=== PATIENT | female | born 1985 | race Native Hawaiian/Other Pacific Islander ===

== ENCOUNTER → 2019-05-10 11:27 | Outpatient (CLI) | payer SELFPAY ==
[2019-05-10 16:35] LABS: HIV 1 & 2 Ab/Ag 4th Gen Combo NEGATIVE (NEGATIVE); Hep C Virus Ab w/Reflex Quant NEGATIVE s/c (NEGATIVE)
== END ==
PROVIDERS: PCP Specialist; Visit Provider Specialist
DX: Z34.81 Encounter for supervision of other normal pregnancy, first trimester (principal)
CPT/HCPCS: 36415; 86787; 86803; 87389

== ENCOUNTER → 2019-07-23 09:44 | Outpatient (CLI) | payer OTHER, SELFPAY ==
[2019-07-23 12:08] LABS: Glucose Fasting 87 mg/dL (70-100)
[2019-07-23 13:01] LABS: Glucose 1 Hour 126 mg/dL (70-170)
[2019-07-23 14:05] LABS: Glucose 2 Hour 115 mg/dL (70-140)
[2019-07-23 15:10] LABS: Glucose Tol Interpretation INTERPRETATION
[2019-07-23 15:17] LABS: Glucose 3 Hour 90 mg/dL (70-115)
== END ==
PROVIDERS: Visit Provider Specialist
DX: O99.810 Abnormal glucose complicating pregnancy (principal); Z34.92 Encounter for supervision of normal pregnancy, unspecified, second trimester
CPT/HCPCS: 36415; 82951; 82952

== ENCOUNTER 2019-09-07 13:59 | Observation (INO) | payer OTHER, MEDICAID, SELFPAY ==
--- NOTE | 2019-09-07 14:37 | P.TNLD_ITS ---
Visit Information Visit Information Date of evaluation: 09/07/19 Primary OB Provider: Elisabeth Chairez On-call OB Provider: Joan Tabares Reason for Evaluation: Yes other Comments/Additional reasons for admission: Pt with diarrhea, nausea, and vomiting starting early this morning. Last PO intake around 1am. Vomited once. Several occurrences of diarrhea. No blood in her emesis or stool. [facility] Medical History (Updated 09/07/19 @ 16:24 by Joan Tabares MD) ADHD (Chronic ~2011) Chicken pox (Resolved) GERD (gastroesophageal reflux disease) (Chronic ~2017) H/O pre-eclampsia in prior , currently (Acute) Herpes (Inactive ~2017) Hypertension (Chronic ~2017) Infertility (Inactive ~2015) Surgical History (Updated 05/06/19 @ 21:08 by Robyn uW) Anesthesia (Resolved) H/O: section (Resolved ~10/2017) Family History (Updated 05/06/19 @ 21:13 by Robyn Wu) Father Glaucoma Sister Pernicious anemia B12 deficiency Grandfather Cancer Grandmother No problems noted. Grandfather Hypertension History of heart disease Grandmother Cancer Objective Imaging ob us: Radiologist's impression: Cervical length 5.0cm. Evaluation Evaluation Baseline heart rate: 140 Variability: Moderate (11-25) monitor accelerations: Present monitor decelerations: Absent Contraction Frequency (minutes): 6 Uterine Contraction Intensity: Mild Category of Tracing: I Diagnosis, Plan/Disposition Final Diagnosis (1) Diarrhea: Current Visit: No Status: Acute (2) Vomiting: Current Visit: No Status: Acute (3) contractions: Current Visit: No Status: Acute Plan/Disposition Plan: No diarrhea or vomiting/nausea while in L&D. Tolerating fluids well. Contractions very mild. Normal cervical length. U/A clean. Recommend increasing fluids at home. F/U with OB within 1 week. OB Disposition: home
--- NOTE | 2019-09-07 15:11 | DI.US.S_ITS ---
PROCEDURE: US OB LIMITED INDICATIONS: CERVICAL LENGTH OUTSIDE/PRIOR DATING DATA: Last menstrual period (LMP): Not available. LMP-based estimated date of delivery (DUNCAN): 10/21/19. First dating scan (date and location): 04/08/19. Estimated date of delivery (DUNCAN) from first dating scan: 10/21/19. TECHNIQUE: Real-time scanning was performed of the fetus, with image documentation. Endovaginal scanning: Not needed COMPARISON: None. FINDINGS: A single living intrauterine gestation is present. Presentation: Vertex. heart rate: 158 beats per minute. Maternal cervical canal: 5.0 cm long. Normal lower limit is 2.5 cm. Estimated gestational age from initial scan: Not available for review. IMPRESSION: 5.0 cm cervical length. heart rate 158 beats per minute. Outside prior OB ultrasound dated apparently is available for review but not available at this time for reference to this study with comparison images from the prior examination(s). Dictated by: Alfredito Ramires M.D. on 09/07/2019 at 17:04 Approved by: Alfredito Ramires M.D. on 09/07/2019 at 17:07
[2019-09-07 15:16] LABS: RBC Urine None Seen (0-5/HPF)
[2019-09-07 15:25] LABS: Appearance Urine UA CLEAR; Bilirubin Urine UA NEGATIVE (NEGATIVE); Color Urine UA YELLOW; Glucose Urine UA NEGATIVE (Negative); Ketones Urine UA NEGATIVE (NEGATIVE); Leukocyte Esterase Urine UA NEGATIVE (NEGATIVE); Nitrite Urine UA NEGATIVE (Negative); Occult Blood Urine UA NEGATIVE (Negative); Protein Urine UA NEGATIVE (Negative); Urobilinogen Urine UA 0.2 E.U./dL (0.2)
[2019-09-07 15:47] LABS: Bacteria Urine Occasional (0-1); Culture Indicated Urine Cult Not Indicated; Squamous Epithelial Cell Urine 1-5 /HPF (0-5/HPF); WBC Urine 0-1/HPF (0-5/HPF)
== END 2019-09-07 16:30 | disposition home or self-care (01) ==
PROVIDERS: Family Medicine; Admitting Provider Specialist; PCP Specialist; Referring Provider Specialist; Visit Provider Specialist
DX: O47.03 False labor before 37 completed weeks of gestation, third trimester (principal); R19.7 Diarrhea, unspecified; R11.2 Nausea with vomiting, unspecified; Z3A.33 33 weeks gestation of pregnancy
CPT/HCPCS: 59025; 59050; 76815; 81001; G0378; G0379

== ENCOUNTER → 2019-09-30 10:16 | Outpatient (CLI) | payer OTHER, MEDICAID, SELFPAY ==
[2019-10-01 13:56] LABS: Strep Grp B PCR POS for Grp B Strep
== END ==
PROVIDERS: PCP Specialist; Referring Provider Specialist; Visit Provider Specialist
DX: Z34.83 Encounter for supervision of other normal pregnancy, third trimester (principal)
CPT/HCPCS: 87653

== ENCOUNTER 2019-10-10 09:26 | Inpatient (IN) | payer OTHER, SELFPAY ==
--- NOTE | 2019-10-10 10:55 | PM.OBHP.1 ---
OB HPI Date/Time Date of admission: 10/10/19 Date Patient Seen: 10/10/19 Time Patient Seen: 10:30 History of Present Condition Chief complaint: OBS : 2 Para: 1 Estimated Date of Delivery: 10/21/19 Estimated Gestational Age (weeks): 38 Narrative: Donnie Mayfield is a 34 year old @38+3 with a history of prior CS for failed postdates induction of labor, presenting in early labor. The patient reports contracitons q7-9 overnight, slowly becoming more painful and now q3. She reports some passage of mucousy blood, a few gushes of clear fluid that have now stopped, no decrease in movement, no other abdominal pain, and no PIH symptoms or other complaints. She reports that this has been otherwise uncomplicated, but reports that her last was complicated by peripartum preeclampsia with severe features, for which she was treated with magnesium. She declined ASA81 during this . Records review indicates a history of HSV2 + serology with no history of lesions. She has a childhood history of asthma, and denies any other contributory medical, surgical, or family history. Indications Operative indications ( section): previous uterine surgery History of Present care: good care, initiated at week # (12), number of visits (25) and pounds weight gain (25) Dating criteria: LMP confirmed by 1st trimester US Ultrasounds: normal mid trimester US Obstetrical complications: none Medical complications: none Preadmission Labs Blood type: O (+) positive -: Antibody screen: negative, GBS status: positive, HBsAG: negative, HIV: negative, HSV 2: positive and RPR/VDLR: negative -: Rubella: unknown (drawn on admission today) and Varicella: immune HCAB: negative 1 hr GTT: 87 Prior (ies) History: G1: 10/07/17, pCS after failed IOL at 42 weeks. M, 9#5, preeclampsia with severe features tx with magnesium. Evaluation Evaluation Baseline heart rate: 150 Variability: Moderate (11-25) monitor accelerations: Present monitor decelerations: Absent Contraction Frequency (minutes): 3 Uterine Contraction Intensity: Moderate Category of Tracing: I Cervical dilation (cm): 1 Cervical effacement (%): 50 station: -1 Non-invasive Membranes Rupture Test: negative [facility] Medical History ADHD (Chronic ~2011) Chicken pox (Resolved) GERD (gastroesophageal reflux disease) (Chronic ~2017) H/O pre-eclampsia in prior , currently (Acute) Herpes (Inactive ~2017) Hypertension (Chronic ~2017) Infertility (Inactive ~2015) Surgical History Anesthesia (Resolved) H/O: section (Resolved ~10/2017) Family History Father Glaucoma Sister Pernicious anemia B12 deficiency Grandfather Cancer Grandmother No problems noted. Grandfather Hypertension History of heart disease Grandmother Cancer Meds Home Medications and Allergies Home Medications Medication Instructions Recorded Confirmed Type fluconazole [Diflucan] 150 mg PO QDAY #1 tab 06/12/17 Rx omeprazole 40 mg capsule,delayed 40 mg PO DAILY #30 cap 05/27/19 05/27/19 Rx release metronidazole 500 mg tablet 500 mg PO BID #14 tab 07/26/19 07/26/19 Rx fluconazole 150 mg tablet 150 mg PO Q3D #2 tab 08/13/19 08/13/19 Rx methylphenidate HCl 5 mg tablet 5 mg PO BID #60 tab 10/04/19 Rx Review of Systems Constitutional Constitutional: Reports system reviewed and no additional complaints, except as documented Cardiovascular Cardiovascular: Reports system reviewed; no additional complaints, except as documented Respiratory Respiratory: Reports system reviewed and no additional complaints, except as documented Gastrointestinal Gastrointestinal: Reports as per HPI Genitourinary Genitourinary: Reports as per HPI Musculoskeletal Musculoskeletal: Reports as per HPI Neurologic Neurologic: Reports as per HPI Exam Vital Signs (past 8 hours): 152/94 -> 133/89, HR 73, T 36.2 Const General: cooperative, healthy appearing, comfortable and well groomed Resp Effort & Inspection: normal respiratory effort Auscultation: clear to auscultation bilaterally Cardio Rate: regular rate Rhythm: regular rhythm GI Palpation: soft and No tender External Female Exam: external appearance normal Presentation: vertex Estimated Weight (lbs): 8 Extrem Right lower extremity: normal to inspection Left lower extremity: normal to inspection Assessment and Plan Assessment and Plan Assessment and Plan narrative: This patient presents in likely early labor, dandy q3-4 despite IV hydration, making slow but definite cervical change, at term and with a prior section. She will be prepped for repeat section by Dr. Chairez, with preeclampsia labs and a rubella titer in addition to the routine preoperative labs. - CBC, T&S, PEC panel, rubella IgG - cEFM, toco - prep for OR per usual protocol Time Spent with Patient Total time spent with greater than 50% in coordination of care (as documented) at patient's floor/unit and/or counseling patient:: 25 - 35 minutes
[2019-10-10 11:49] LABS: Add Manual Diff / Slide Review NO; Basophils Absolute Auto 0 /uL (0-100); Basophils Percent Auto 0.4 % (0-2); Eosinophils Absolute Auto 100 /uL (0-450); Eosinophils Percent Auto 0.7 % (2-4); Hematocrit 37.7 % (36-46); Hemoglobin 12.7 g/dL (12.0-16.0); Lymphocytes Absolute Auto 3000 /uL (1100-4500); Lymphocytes Percent Auto 28.4 % (25-40); Mean Corpuscular HGB Conc 33.7 % (30-36); Mean Corpuscular Hemoglobin 29.7 PG (26-34); Mean Corpuscular Volume 88.2 fL (80-100); Monocytes Absolute Auto 1000 /uL (0-900); Monocytes Percent Auto 9.3 % (3-14); Neutrophils Absolute Auto 6400 /uL (1500-7000); Neutrophils Percent Auto 61.2 % (50-75); Platelet Count 202 X10^3/uL (150-400); Red Blood Cell Count 4.27 X10^6/uL (4.0-5.2); Red Cell Distribution Width 13.2 % (11.6-14.8); White Blood Cell Count 10.4 X10^3/uL (4.5-11.0)
[2019-10-10] MEDS: LACTATED RINGERS 1,000 ML 100 ML IV ×3 (11:50→13:11)
[2019-10-10 11:57] LABS: Alanine Aminotransferase 12 IU/L (<35); Albumin 3.9 g/dL (3.5-5.0); Albumin Globulin Ratio 1.1 (1.0-2.8); Alkaline Phosphatase 189 U/L (38-126); Aspartate Aminotransferase 19 IU/L (14-36); Bilirubin Total 0.3 mg/dL (0.2-1.3); Blood Urea Nitrogen 5 mg/dL (7-17); Calcium 10.1 mg/dL (8.4-10.2); Carbon Dioxide 22 mmol/L (22-32); Chloride 106 mmol/L (98-107); Estimated Glomerular Filt Rate > 60.0 mL/min (>60); Globulin 3.6 g/dL (1.7-4.1); Glucose 116 mg/dL (70-100); HEMOLYSIS < 15 (0-50); Potassium 4.3 mmol/L (3.4-5.1); Sodium 136 mmol/L (137-145); Total Protein 7.5 g/dL (6.3-8.2); Uric Acid 5.9 mg/dL (2.5-6.2)
[2019-10-10] MEDS: CITRIC ACID/SODIUM CITRATE 15 ML SOLUTION 30 ML PO (12:01)
--- NOTE | 2019-10-10 12:13 | PM.PREOP ---
Pre-operative Note Interval Note History & Physical reviewed/Exam performed by Physician: Yes Changes to H&P: No
[2019-10-10] MEDS: CEFAZOLIN 2 GM/100 ML FROZ.PIGGY IV (12:31)
--- NOTE | 2019-10-10 13:02 | SUR.OPER ---
Supine on Padded OR bed, head on pillow, safety belt at thigh, arms secured on padded arm boards at <90 degrees abduction. Bump under right buttock. Legs uncrossed with pillow under knees, gel pad to heels, tape over blanket to lower legs.
--- NOTE | 2019-10-10 13:13 | SUR.OPER ---
FHR 137 LIVE MALE AT 1252
[2019-10-10 13:26] VITALS: BP 106/65; PULSE 68; RESP 14; TEMP 36.2; O2SAT 95
--- NOTE | 2019-10-10 13:28 | P.OP_ITS ---
Operative Date/Time/Diagnoses Date of procedure: 10/10/19 Time of procedure: 13:28 Pre-op diagnosis: Prior in early labor Post-op diagnosis: same Procedure & Clinicians Procedure: Repeat low-transverse section Same procedure as scheduled: Yes Indications: Prior in early labor Surgeon: Elisabeth Chairez Product Support Sales Representative: Rayne Dobbins Click Yes if Unassisted: No Anesthesia Type: Spinal Operative Notes Findings: Normal tubes, ovaries, and uterus. Viable male weighing 7 lb 7 oz with Apgars of 9 and 9 Closure Type: primary Specimen(s): none sent Applied: catheter (Garza) Estimated Blood Loss (mL): 200 Blood products transfused: none Procedure in detail: The patient was brought to the operating room where she underwent a spine for anesthesia. She was placed in a supine position with a left lateral tilt. A Garza catheter was placed. Pulsatile stockings were placed and functional throughout the case. 2 g of Ancef were given IV prior to the incision. Warming was in place. The patient was prepped and draped in usual sterile fashion. A low transverse incision was made with a scalpel and the incision was carried down to the fascial layer which was incised transversely with scissors. The midline attachments are superiorly and inferiorly. Some bleeding was controlled Bovie. The rectus muscles were in the midline and the peritoneal incision was made with no damage to internal structures. The peritoneum was incised and superiorly and inferiorly. Bladder blade was placed and a bladder flap was developed and the bladder held away from the lower uterine segment. An incision was made in the uterus with the scalpel and the incision was extended with stretching. The head was elevated out of the abdomen and with fundal pressure the baby was delivered. The infant was bulb suctioned for clear fluid and handed off to the warmer. Cord blood was collected. The placenta delivered spontaneously with traction. The uterus was cleaned with clean laps. The uterine incision was closed in 2 layers of 0 chromic suture the first a running locking layer the second an imbricating layer. The bladder peritoneum was repaired with 2-0 Polysorb suture. The gutters were cleaned of any remaining fluids and ovaries and tubes were observed to be normal. Adequate hemostasis was noted. The perineum was closed with 2-0 Polysorb suture. The fascia layer was closed with 0 Polysorb suture with 2 stitches. The incision was irrigated and adequate hemostasis noted. The incision was closed with interrupted 3-0 Polysorb sutures and then a subcuticular stitch of 4-0 Polysorb suture. Steri-Strips were placed. The uterus was massaged to remove any clots. The patient went to recovery room in good condition. Counts of instruments and sponges were correct. Complications: none Post-operative Condition: stable Disposition: other ( Center) Plan for aftercare: Routine post section
[2019-10-10 13:31] VITALS: BP 105/66; PULSE 60; RESP 13; O2SAT 95
[2019-10-10 13:36] VITALS: BP 111/72; PULSE 66; RESP 9; O2SAT 96
[2019-10-10 13:41] VITALS: BP 105/67; PULSE 64; RESP 14; O2SAT 100
--- NOTE | 2019-10-10 13:54 | SUR.PHASEI ---
Pt was transferred to Room 2 in L7D. Pt was in stable condition and immediately had skin to skin contact an latching to breast with baby as soon as we arrived. Fundus was 2-3 breaths below the umbilicus. Pad had only a scant amount of red blood noted. Pt was in stable condition upon departure from room
[2019-10-10 15:14] VITALS: BP 152/94
[2019-10-10 16:26] VITALS: TEMP 36.3
[2019-10-10] MEDS: HYDROMORPHONE 2 MG TABLET PO ×2 (16:26→22:48)
[2019-10-10] MEDS: ONDANSETRON 4 MG/2 ML INJ IV ×2 (17:15→22:48)
[2019-10-10] MEDS: KETOROLAC 30 MG/ML VIAL IV ×2 (19:44→22:48)
[2019-10-10] MEDS: ACETAMINOPHEN 325 MG TABLET 650 MG PO (22:48)
[2019-10-11] MEDS: ACETAMINOPHEN 325 MG TABLET 650 MG PO ×3 (05:35→20:06)
[2019-10-11] MEDS: KETOROLAC 30 MG/ML VIAL IV (05:36)
[2019-10-11] MEDS: HYDROMORPHONE 2 MG TABLET PO ×4 (05:36→23:57)
[2019-10-11 08:27] LABS: Hematocrit 31.7 % (36-46); Hemoglobin 10.5 g/dL (12.0-16.0)
[2019-10-11] MEDS: ONDANSETRON 4 MG/2 ML INJ IV (09:02)
[2019-10-11] MEDS: DOCUSATE 250 MG CAPSULE PO (09:03)
[2019-10-11] MEDS: IBUPROFEN 600 MG TABLET PO ×2 (12:09→18:00)
--- NOTE | 2019-10-11 17:04 | P.PNOB_ITS ---
Subjective - OB Subjective Patient comments: pain well controlled, tolerating diet and flatus present [place]elope baby status: doing well feeding status: exclusively breast feeding Date Patient Seen: 10/11/19 Time Patient Seen: 13:04 Interval history: Patient is postoperative day 1. Repeat low-transverse section. She is doing very well. She is breast-feeding without difficulty. She is urinating and ambulating well. She is passing gas. No headaches, scotomata, epigastric pain. Exam Vital Signs (past 8 hours): Blood pressure 109/65, pulse of 83, temperature 98.8? Oxygen Delivery Method Room Air Narrative Exam Narrative: Abdomen is soft, nontender. Uterus is firm, at U, mildly tender. Dressing is clean, dry, intact. Mild lochia. Extremities with trace edema and nontender. Objective Labs Result Diagrams: 10/11/19 08:10 10/10/19 11:32 Labs: Laboratory Results - last 24 hr 10/11/19 08:10 Hgb 10.5 L Hct 31.7 L Assessment & Plan Assessment and Plan (1) Delivery by section at 37-39 weeks of gestation due to labor: Status: Acute Current Visit: Yes (2) H/O: section: Status: Resolved Current Visit: No Plan day: 1 plan OB: routine postop care Comments: Likely home in a.m. if doing well Time Spent With Patient Time: Total time spent is greater than 50% in coordination of care (as documented) at patient's floor/unit and/or counseling patient: Time with patient: 15-24 minutes
[2019-10-11] MEDS: ONDANSETRON 4 MG ODT SL (18:00)
[2019-10-11] MEDS: LANOLIN OINT 7 GM 1 APPLIC TOP (18:51)
[2019-10-11 20:06] VITALS: TEMP 36.4
[2019-10-12] MEDS: IBUPROFEN 600 MG TABLET PO ×2 (00:01→05:55)
[2019-10-12] MEDS: ACETAMINOPHEN 325 MG TABLET 650 MG PO (05:56)
[2019-10-12] MEDS: HYDROMORPHONE 2 MG TABLET PO (06:00)
[2019-10-12 07:53] VITALS: BP 152/94; PULSE 64; RESP 14; TEMP 36.4
--- NOTE | 2019-10-12 09:32 | PM.OBDS.1 ---
Discharge Providers Provider Date of admission: 10/10/19 09:26 Discharge Date: 10/12/19 Primary care physician: Elisabeth Chairez MD Consults: 10/10/19 15:13 Consult to Campground Attendant Routine Comment: Discharge provider: Elisabeth Chairez MD Summary Hospital Course Date Patient Seen: 10/12/19 Time Patient Seen: 09:32 Procedures: Repeat low-transverse section Hospital Course: Patient arrived on Labor and delivery in early labor with planned repeat section. She underwent a repeat section on 10/10/19. Patient did well post section. She is tolerating a regular diet. Her pain is under control. She is passing gas. She denies headaches, scotomata, epigastric pain. She is urinating and ambulating well. She is breast-feeding without difficulty. Peripartum Data Infant Delivery Method: Section (Repeat low-transverse section) complications: none 1: Gender: Male Disposition of : home Discharge Diagnosis (1) Delivery by section at 37-39 weeks of gestation due to labor: Status: Acute (2) H/O: section: Status: Resolved (3) Acute on chronic blood loss anemia: Status: Acute Status at Discharge Cognitive/behavioral status at discharge: oriented Functional status at discharge: independent ambulation Overall status at discharge: patient is progressing back to baseline Time Spent with Patient Time attestation: Total time spent providing and/or coordinating discharge services: Time spent: Less than 30 minutes Objective Labs Result Diagrams: 10/11/19 08:10 10/10/19 11:32 Exam Vital Signs (past 8 hours): Blood pressure 131/86, pulse 92, temperature 98.1?- 10/12/19 07:53 Temperature 97.5 F L Pulse Rate 64 Respiratory Rate 14 Blood Pressure 152/94 H Oxygen Delivery Method Room Air Narrative Exam Narrative: Abdomen is soft, nontender. Uterus is firm, at U, nontender. Dressing is clean, dry, intact. Mild lochia. Extremities with trace edema and nontender. Patient's blood type is O positive, she is rubella immune, she received the Tdap in the 3rd trimester Discharge Plan Discharge Plan Patient Disposition: Home Discharge orders & Medications Prescriptions: New hydromorphone 2 mg Tablet 2 mg PO Q6HR PRN (Reason: Pain, Severe (7-10)) Qty: 30 RF: 0 ibuprofen 600 mg Tablet 600 mg PO Q6HR PRN (Reason: Fever/Mild Pain (1-3)) Qty: 30 RF: 0 docusate sodium 250 mg Capsule 250 mg PO DAILY Qty: 20 RF: 0 ferrous gluconate 324 mg (38 mg iron) Tablet 324 mg PO DAILY Qty: 30 RF: 0 Continued methylphenidate HCl 5 mg tablet 5 mg PO BID Qty: 60 RF: 0 Discontinued fluconazole [Diflucan] 150 MG tablet 150 mg PO QDAY Qty: 1 RF: 1 metronidazole 500 mg tablet 500 mg PO BID Qty: 14 RF: 0 omeprazole 40 mg capsule,delayed release(DR/EC) 40 mg PO DAILY Qty: 30 RF: 3 fluconazole 150 mg tablet 150 mg PO Q3D Qty: 2 RF: 1 Follow up/Referrals: Elisabeth Chairez MD [Primary Care Provider] - 1 Week (please f/u w/ Dr. Chairez on Friday, October 17 @ 12pm) Diet/Activity/Treatments Diet: Regular Activity: Nothing in vagina or lifting over 20 lb for 6 weeks Skin/Wound/Dressing Care Report to your healthcare provider any signs of infection, such as:: chills, fever, increased pain and unusual redness Dressing: Leave dressing in place until postop appointment Visit Report/Discharge Packet Instructions: DI for Stand Alone Forms: Discharge: Care Discharge Data Primary Care Provider: Elisabeth Chairez
== END 2019-10-12 09:58 | disposition home or self-care (01) | DRG 787 ==
PROVIDERS: Admitting Provider Obstetrics & Gynecology; PCP Specialist; Referring Provider Obstetrics & Gynecology; Visit Provider Obstetrics & Gynecology
PROC: (CPT 59514; principal; 2019-10-10 12:00)
DX: O34.219 Maternal care for unspecified type scar from previous cesarean delivery (principal); O98.32 Other infections with a predominantly sexual mode of transmission complicating childbirth; D62 Acute posthemorrhagic anemia; O75.82 Onset (spontaneous) of labor after 37 completed weeks of gestation but before 39 completed weeks gestation, with delivery by (planned) cesarean section; O99.02 Anemia complicating childbirth; B00.9 Herpesviral infection, unspecified; Z3A.38 38 weeks gestation of pregnancy; Z37.0 Single live birth; O99.824 Streptococcus B carrier state complicating childbirth
CPT/HCPCS: 36415; 59025; 59050; 59514; 59515; 80053; 84112; 84550; 85014; 85018; 85025; 86762; 86850; 86900; 86901; G0379; J0690; J1885; J2405; J2590

== ENCOUNTER → 2023-07-14 15:01 | Outpatient (CLI) | payer OTHER, MEDICAID, SELFPAY ==
[2023-07-16 17:56] LABS: Candida species Positive (Negative); Gardnerella vaginalis Positive (Negative); Trichomoas vaginalis Negative (Negative)
== END ==
PROVIDERS: PCP Family Medicine; Visit Provider Physician Assistant Medical
DX: N89.8 Other specified noninflammatory disorders of vagina (principal)
CPT/HCPCS: 87480; 87510; 87660